=== PATIENT | male | born 1975 | race Caucasian/White ===

== ENCOUNTER 2019-04-30 06:04 | Day surgery (SDC) | payer OTHER ==
[2019-04-28 12:02] VITALS: BMI 29.0
[~2019-04-30 06:04] MED LIST: LIDOCAINE 1%/EPI 1:100000 (50 ML MULTI DOSE VIAL) INF ONE
[2019-04-30] MEDS ORDERED: SUCCINYLCHOLINE CHLORIDE 200 MG/10 ML SYRINGE ONE (07:08)
[2019-04-30] MEDS ORDERED: PROPOFOL 20 ML ONE (07:08)
[2019-04-30] MEDS ORDERED: oxyCODONE HCL 10 MG SUSTAINED ACTING TABLET PO ONE ×3 (07:08→07:45)
[2019-04-30] MEDS ORDERED: BUPIVACAINE HCL/PF 0.5% (5MG/ML) 10 ML VIAL ONE (07:10)
[2019-04-30] MEDS ORDERED: GUM MASTIC/STORAX/MSAL/ALCOHOL 1 DRP DROPSBTL MC ONE (07:34)
[2019-04-30] MEDS ORDERED: methylPREDNISolone ACET (DEPO) 40 MG/1 ML VIAL ONE (07:34)
[2019-04-30] MEDS ORDERED: LIDOCAINE 1%/EPI 1:100000 (20 ML MULTI DOSE VIAL) ONE (07:34)
[2019-04-30 08:03] LABS: INR 0.95 (0.82-1.09); PROTHROMBIN TIME (PATIENT) 10.6 SEC (10.2-13.0)
[2019-04-30] MEDS ORDERED: BUPIVACAINE HCL/PF 0.5% (5 MG/ML) 30 ML VIAL IJ ONE (08:14)
[2019-04-30] MEDS ORDERED: MIDAZOLAM HCL 2 MG/2 ML SINGLE DOSE VIAL ONE ×2 (08:14→09:07)
--- NOTE | 2019-04-30 08:29 | HP ---
History & Physical Update - History History: No Change - Physical Physical: No Change - Assessment Assessment: No Change - Plan Plan: No Change
[2019-04-30] MEDS ORDERED: ceFAZolin SODIUM 1 GM VIAL ONE (08:54)
[2019-04-30] MEDS ORDERED: DEXAMETHASONE SOD PHOSPHATE 4 MG/1 ML VIAL ONE (08:54)
[2019-04-30] MEDS ORDERED: ONDANSETRON 4 MG/2 ML VIAL ONE (08:54)
[2019-04-30] MEDS ORDERED: LIDOCAINE 1%/EPI 1:100000 (50 ML MULTI DOSE VIAL) INF ONE ×2 (09:10)
[2019-04-30] MEDS ORDERED: methylPREDNISolone ACET (DEPO) 40 MG/1 ML VIAL IM ONE (10:00)
--- NOTE | 2019-04-30 10:39 | OP ---
Operative Note - Note: Operative Date: 04/30/19 Pre-Operative Diagnosis: lumbar stenosis L4-5 Operation: laminectomy of lumbar L4-5 Surgeon: Jose [facility] Manager: Jeni Bullock Anesthesiologist/[employer] SALES REPRESENTATIVE: David Smiley Anesthesia: Spinal Estimated Blood Loss (mls): 20 Fluid Volume Replaced (mls): 750 Operative Report Dictated: Yes
--- NOTE | 2019-04-30 10:54 | SURG ---
Surgery Vice President Of Recruiting Note Vice President Of Recruiting: Jeni Bullock PA-C Date of Service: 04/30/19 Diagnosis: lumbar stenosis L4-5 Procedure: laminectomy of lumbar L4-5 I was present for the entirety of the operative procedure. For further detail, please refer to operative report. Visit type - Case Type Case Type: Scheduled - Emergency Emergency Visit: No - New patient This patient is new to me today: Yes Date on this admission: 04/30/19
[2019-04-30] MEDS ORDERED: ONDANSETRON 4 MG/2 ML VIAL IVPUSH PRN ×2 (11:44→15:03)
[2019-04-30] MEDS ORDERED: oxyCODONE HCL 5 MG TABLET PO PRN ×4 (11:44→15:03)
[2019-04-30] MEDS ORDERED: LACTATED RINGERS SOLUTION 1,000 ML IV SCH ×2 (11:45→15:15)
[2019-04-30 11:52] VITALS: TEMP 98.5
[2019-04-30 12:28] VITALS: PULSE 74
[2019-04-30 13:07] VITALS: BP 110/76
--- NOTE | 2019-04-30 14:00 | OP ---
DATE OF OPERATION: 04/30/2019 PREOPERATIVE DIAGNOSIS: Spinal stenosis L4-5. POSTOPERATIVE DIAGNOSIS: Spinal stenosis L4-5. PROCEDURE PERFORMED: Laminectomy L4-5. SURGEON: Jose Villatoro MD ZIGZAG APPLIQUER: MALGORZATA Luo ESTIMATED BLOOD LOSS: 50 mL. INTRAVENOUS FLUIDS: Per anesthesia. ANESTHESIA: Spinal/TLIP block. COMPLICATIONS: There were none. DISPOSITION: Patient brought to PACU in stable condition. INDICATIONS FOR SURGERY: Patient is a 43-year-old gentleman who has been suffering from pain from his back down his legs. X-rays and MRI were completed, which noted that he had spinal stenosis at L4-5. He had gone through an exhaustive course of treatment for this, which included medications, physical therapy, injections. Unfortunately, his pain continued to persist despite all this. At this point, risks, benefits, alternatives were discussed, and the patient consented to surgery. DESCRIPTION OF PROCEDURE: Patient was brought to the operating room by anesthesia staff. After appropriate patient identification was performed, spinal anesthesia was given. A TLIP block was also given. Patient was able to position himself prone onto the OR table with all areas and bony prominences well padded at this time. Two needles were placed into his back to abelino off the L4-5 level. X-ray was taken to confirm this was correct. Needle was removed, and 10 mL of lidocaine with epinephrine was injected into his back. His back was prepped and draped in a sterile manner. At this point, a time-out was completed. An incision was made from the top of L4 down to the bottom of L5. Dissection was carried down to the fascia. Fascia was split at this time, and appropriate retractor was then placed in. A spinal needle was placed onto the L4 lamina to abelino off the L4-5 level. X-ray was taken to confirm this was correct. Needle was removed, and the interspinous ligament at L4-5 was removed. Portions of the L4-5 spinous processes were removed. The flavum was removed. A complete decompression was performed such that by the end of the procedure the L5 nerve root appeared to be well decompressed. All bleeding was well controlled at this time. Steroids was placed over the nerve root. FloSeal was placed over that. The fascia was closed with a No. 1 Vicryl suture. The subcutaneous tissue was closed with 2-0 Vicryl suture. Skin was closed with 3-0 Monocryl suture. Dermabond was applied. Steri-Strips were applied. Sterile dressing was applied. Patient was placed supine on the OR bed, brought to the PACU in stable condition. JOSE VILLATORO M.D. SARAH/[id number] MTDD
== END 2019-04-30 12:55 | disposition home or self-care (01) ==
LOC: FASU 06:04
PROVIDERS: ATTEND Orthopaedic Surgery Orthopaedic Surgery of the Spine
PROC: 01NB0ZZ Release Lumbar Nerve, Open Approach (ICD-10-PCS; principal; 2019-04-30 09:26)
DX: M48.061 Spinal stenosis, lumbar region without neurogenic claudication (principal)
CPT/HCPCS: 36415; 72100-TC-FY; 76000-TC-FY; 85610; 94760